=== PATIENT | female | born 1960 | race Caucasian/White ===

== ENCOUNTER 2019-07-31 13:05 | Emergency (ER) | payer OTHER, BC ==
--- NOTE | 2019-07-31 13:41 | EDM.PDOC ---
ED HPI GENERAL MEDICAL PROBLEM - General Chief Complaint: Head Injury Stated Complaint: FALL Time Seen by Provider: 07/31/19 13:24 Source of Information: Reports: Patient History Limitations: Reports: No Limitations - History of Present Illness INITIAL COMMENTS - FREE TEXT/NARRATIVE: Patient is a 59-year-old female who presents to the emergency department after having a fall while at work. She states that she was carrying some gardening equipment and tripped over her pant leg. She fell forward and did slightly catch herself with her hands. She has some superficial abrasions on her bilateral hands. She states that she hit her face on the cement floor when she fell forward. She denies a loss of consciousness. She has had no headache or dizziness since the time of the occurrence. She remembers all the events. She is not on blood thinners. She states she is feeling well, however her employer required her to get checked out. She does not plan to return to work today. Lip Pain Score (Numeric/FACES): 2 - Related Data Allergies Allergy/AdvReac Type Severity Reaction Status Date / Time Penicillins Allergy Severe Rash Verified 07/31/19 13:19 Home Meds: Home Meds Citalopram Hydrobromide [Celexa] 10 mg PO DAILY 07/31/19 [History] Omeprazole 20 mg PO DAILY 07/31/19 [History] lisinopriL [Lisinopril] 0 mg PO DAILY 07/31/19 [History] Past Medical History Cardiovascular History: Reports: Hypertension Gastrointestinal History: Reports: GERD - Past Surgical History HEENT Surgical History: Reports: Tonsillectomy Social & Family History - Tobacco Use Smoking Status *Q: Current Every Day Smoker Years of Tobacco use: 40 Packs/Tins Daily: 0.5 - Caffeine Use Caffeine Use: Reports: Soda - Recreational Drug Use Recreational Drug Use: No ED ROS GENERAL - Review of Systems Review Of Systems: See Below Constitutional: Reports: No Symptoms HEENT: Reports: No Symptoms Respiratory: Reports: No Symptoms Cardiovascular: Reports: No Symptoms Endocrine: Reports: No Symptoms GI/Abdominal: Reports: No Symptoms : Reports: No Symptoms Musculoskeletal: Reports: No Symptoms Skin: Reports: Other (Right upper lip swelling. Small area of redness/ tenderness directly above the right brow.) Neurological: Denies: Confusion, Dizziness, Headache, Paresthesia, Syncope, Trouble Speaking, Difficulty Walking, Weakness, Change in Speech Psychiatric: Reports: No Symptoms Hematologic/Lymphatic: Reports: No Symptoms Immunologic: Reports: No Symptoms ED EXAM, HEAD INJURY - Physical Exam Exam: See Below Exam Limited By: No Limitations General Appearance: Alert, WD/WN, No Apparent Distress Head: Normocephalic, Other (1 cm area of slight redness and minimal swelling directly above the right brow.). No: Scalp Swelling, Scalp Ecchymosis, Scalp Hematoma, Scalp Tenderness, Active Bleeding, Chávez's Sign, Facial Abrasions, Facial Lacerations, Facial Tenderness Nose: Normal Inspection, Normal Mucousa, No Blood. No: Nasal Swelling, Nasal Tenderness Throat/Mouth: Normal Inspection, Normal Lips, Normal Teeth, Normal Gums, Normal Oropharynx, Normal Voice, No Airway Compromise, Lip Swelling (Right upper lip. 0.5 cm abrasion present.) Respiratory: No Respiratory Distress, Lungs Clear, Normal Breath Sounds, No Accessory Muscle Use, Chest Non-Tender Cardiovascular: Normal Peripheral Pulses, Regular Rate, Rhythm, No Edema, No Gallop, No JVD, No Murmur, No Rub Extremities: Other (Superficial abrasions to bilateral palms. 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 There is no open areas or active bleeding. She does have swelling to her right upper lip with a superficial abrasion. Her neurologic exam is normal. She did not have a loss of consciousness. She denies any headache or dizziness. I do not feel CT scan of the head is warranted at this time. We will discharge her home with instructions to return if she should develop a significant headache, dizziness, vomiting, or any other neurologic changes. She is in agreement with this plan. Discharge instructions as documented. Departure - Departure Time of Disposition: 13:41 Disposition: Home, Self-Care 01 Condition: Good Clinical Impression: Contusion of lip, initial encounter Forehead contusion Qualifiers: Encounter type: initial encounter Qualified Code(s): S00.83XA - Contusion of other part of head, initial encounter - Discharge Information *PRESCRIPTION DRUG MONITORING PROGRAM REVIEWED*: No *COPY OF PRESCRIPTION DRUG MONITORING REPORT IN PATIENT KARLEE: No Instructions: Contusion, [id number] Forms: ED Department Discharge Additional Instructions: You were seen in the emergency department today for evaluation after a fall at work. On exam, you have a mild contusion above your right eyebrow, as well as a contusion of your right upper lip. You deny any headache, dizziness, or loss of consciousness. Your neurologic exam was normal. Recommend that you go home and rest. You may apply ice to your lip and forehead intermittently for the next day or 2 to help reduce the swelling. If you should develop any symptoms of neurologic dysfunction, such as headache, dizziness, vomiting, or any other symptoms of concern, please return to the emergency department. Sepsis Event Note - Evaluation Sepsis Screening Result: No Definite Risk - Focused Exam Vital Signs: Vital Signs Temp Pulse Resp BP Pulse Ox 07/31/19 13:24 98.4 F 89 20 123/80 95 Date Exam was Performed: 07/31/19 Time Exam was Performed: 19:17
== END 2019-07-31 13:50 | disposition home or self-care (01) ==
LOC: JD.ED 13:05
DX: S00.531A Contusion of lip, initial encounter (principal); S00.83XA Contusion of other part of head, initial encounter; S60.512A Abrasion of left hand, initial encounter; S60.511A Abrasion of right hand, initial encounter; I10 Essential (primary) hypertension; K21.9 Gastro-esophageal reflux disease without esophagitis; F17.210 Nicotine dependence, cigarettes, uncomplicated; Z79.899 Other long term (current) drug therapy; Z88.0 Allergy status to penicillin; W01.0XXA Fall on same level from slipping, tripping and stumbling without subsequent striking against object, initial encounter; Y99.0 Civilian activity done for income or pay
CPT/HCPCS: 99283

== ENCOUNTER 2020-04-16 16:18 | Emergency (ER) | payer BC, OTHER ==
--- NOTE | 2020-04-16 17:39 | EDM.PDOC ---
ED HPI GENERAL MEDICAL PROBLEM - General Chief Complaint: General Stated Complaint: ARM SWELLING/RED/POST 2ND COVID VACCINE Time Seen by Provider: 04/16/20 17:28 - History of Present Illness INITIAL COMMENTS - FREE TEXT/NARRATIVE: 59-year-old female presents the emergency room with left upper arm swelling and redness and discomfort at the injection site from her second Covid vaccine earlier today. Patient had her second Covid vaccine earlier today she is doing okay however at the injection site she has some discomfort and redness and a little bit of swelling that she did not experience with the first vaccine. Patient does not have any breathing difficulties no shortness of breath and denies any other symptoms. Generalized Pain Score (Numeric/FACES): 5 - Related Data Allergies Allergy/AdvReac Type Severity Reaction Status Date / Time Penicillins Allergy Severe Rash Verified 04/16/20 16:51 Home Meds: Home Meds Citalopram Hydrobromide [Celexa] 10 mg PO DAILY 07/31/19 [History] Omeprazole 20 mg PO DAILY 07/31/19 [History] lisinopriL [Lisinopril] 10 mg PO DAILY 07/31/19 [History] Past Medical History Cardiovascular History: Reports: Hypertension Gastrointestinal History: Reports: GERD - Infectious Disease History Infectious Disease History: Reports: Chicken Pox, Measles - Past Surgical History HEENT Surgical History: Reports: Tonsillectomy Social & Family History - Family History Family Medical History: No Pertinent Family History - Tobacco Use Tobacco Use Status *Q: Current Every Day Tobacco User Years of Tobacco use: 40 Packs/Tins Daily: 1 - Caffeine Use Caffeine Use: Reports: Soda - Recreational Drug Use Recreational Drug Use: No ED ROS GENERAL - Review of Systems Review Of Systems: See Below Constitutional: Reports: No Symptoms HEENT: Reports: No Symptoms Respiratory: Reports: No Symptoms Cardiovascular: Reports: No Symptoms GI/Abdominal: Reports: No Symptoms ED EXAM, GENERAL - Physical Exam Exam: See Below Exam Limited By: No Limitations General Appearance: Alert, No Apparent Distress Head: Atraumatic, Normocephalic Neck: Normal Inspection, Supple, Non-Tender, Full Range of Motion Respiratory/Chest: No Respiratory Distress, Lungs Clear, Normal Breath Sounds Cardiovascular: Regular Rate, Rhythm, No Edema, No Murmur Neurological: Alert, Oriented, Normal Cognition Skin Exam: Other (Upper arm in the deltoid region lateral aspect at the injection site she has mild swelling 5 to 6 cm round area of redness.) Course - Vital Signs Last Recorded V/S: Last Vital Signs Temp 36.8 C 04/16/20 16:47 Pulse 95 04/16/20 16:47 Resp 18 04/16/20 16:47 BP 136/80 04/16/20 16:47 Pulse Ox 98 04/16/20 16:47 - Re-Assessments/Exams Free Text/Narrative Re-Assessment/Exam: 04/16/20 17:51 I discussed with the patient that this is often seen after the Covid vaccine the patient was not aware of this. But she will watch her symptoms closely, and return as needed. Departure - Departure Time of Disposition: 17:52 Disposition: Home, Self-Care 01 Clinical Impression: Injection site reaction - Discharge Information Referrals: PCP,None [Primary Care Provider] - Additional Instructions: Return to the emergency room with any questions problems or worsening symptoms. As we discussed this probably represents a normal reaction to the Covid vaccine. However if this worsens and you think you need to be reevaluated do not hesitate to return to the emergency room. Use Tylenol 1000 mg every 6 hours. However do not exceed this dose. Sepsis Event Note (ED) - Evaluation Sepsis Screening Result: No Definite Risk - Focused Exam Vital Signs: Vital Signs Temp Pulse Resp BP Pulse Ox 04/16/20 16:47 36.8 C 95 18 136/80 98
== END 2020-04-16 17:57 | disposition home or self-care (01) ==
LOC: JD.ED 16:18
DX: T88.1XXA Other complications following immunization, not elsewhere classified, initial encounter (principal); I10 Essential (primary) hypertension; K21.9 Gastro-esophageal reflux disease without esophagitis; Z72.0 Tobacco use; Z79.899 Other long term (current) drug therapy; Z88.0 Allergy status to penicillin
CPT/HCPCS: 99282; 99283

== ENCOUNTER 2022-04-12 11:42 | Emergency (ER) | payer OTHER, BC | END 2022-04-12 13:38 | disposition home or self-care (01) | LOC: JD.ED 11:42 | DX: S51.812A Laceration without foreign body of left forearm, initial encounter (principal); Z20.5 Contact with and (suspected) exposure to viral hepatitis; K21.9 Gastro-esophageal reflux disease without esophagitis; F17.210 Nicotine dependence, cigarettes, uncomplicated; Z88.0 Allergy status to penicillin; Z88.1 Allergy status to other antibiotic agents; Z88.5 Allergy status to narcotic agent; Z79.899 Other long term (current) drug therapy; Y04.0XXA Assault by unarmed brawl or fight, initial encounter | CPT/HCPCS: 36415; 86317; 86803; 99283; G0433 ==

== ENCOUNTER 2024-04-16 10:48 | Day surgery (SDC) | payer BC ==
[~2024-04-16 10:48] MED LIST: Dexamethasone 4 MG/ML 5 ML MDV ONE; Lidocaine 1% 5 ML VIAL ONE; Midazolam 1 MG/ML 2 ML SDV ONE; Ondansetron 4 MG/2 ML SDV ONE; Propofol 200 MG/20 ML SDV ONE; Rocuronium 50 MG/5 ML Vial ONE; Sodium Chloride 0.9% 10 ML Syringe FLUSH PRN; Sodium Chloride 0.9% 10 ML Syringe FLUSH SCH; fentaNYL 250 MCG/5 ML SDV ONE
[2024-04-16] MEDS ORDERED: Succinylcholine 200 MG/10 ML MDV ONE (11:04)
[2024-04-16] MEDS ORDERED: Lidocaine 1% 30 ML SDV ONE (11:05)
[2024-04-16] MEDS: Lactated Ringers 1,000 ML IV SCH (11:20)
[2024-04-16] MEDS ORDERED: Bupivacaine 0.5% 30 ML SDV ONE (11:23)
[2024-04-16] MEDS ORDERED: ePHEDrine 50 MG/ML SDV ONE ×2 (11:25→13:25)
[2024-04-16] MEDS ORDERED: Phenylephrine 1% 10 MG/ML SDV ONE (11:42)
[2024-04-16] MEDS: Clindamycin Phosphate in D5W 900 MG in Premix Bag 1 BAG IV ONE (11:51)
[2024-04-16] MEDS: Gabapentin 300 MG Cap PO ONE (11:51)
[2024-04-16] MEDS: Acetaminophen 325 MG Tab PO ONE (11:52)
[2024-04-16] MEDS ORDERED: Ketorolac 30 MG/ML SDV ONE (11:54)
[2024-04-16 12:03] LABS: ALBUMIN 3.7 g/dl (3.4-5.0); ANION GAP 19.2 (5-15); BILIRUBIN TOTAL 0.4 mg/dL (0.2-1.0); BUN/CREATININE RATIO 11.2 (14-18); CALCIUM 9.7 mg/dL (8.5-10.1); CREATININE 1.7 mg/dL (0.55-1.02); EST CRCL DRUG DOSING (CG) 30.88 mL/min; POTASSIUM,K 4.2 mEq/L (3.5-5.1); PROTEIN TOTAL,TP 7.3 g/dl (6.4-8.2)
[2024-04-16] MEDS ORDERED: Glycopyrrolate 0.2 MG/ML 2 ML SDV ONE (12:29)
[2024-04-16] MEDS ORDERED: Neostigmine Methylsulfate 10 MG/10 ML MDV ONE (12:29)
[2024-04-16] MEDS: Lidocaine 1% 30 ML SDV ONE (13:03)
[2024-04-16] MEDS: EPINEPHrine 1 MG/ML SDV ONE (13:03)
[2024-04-16] MEDS: Bupivacaine 0.5% 30 ML SDV ONE (13:03)
[2024-04-16] MEDS ORDERED: Ondansetron 4 MG/2 ML SDV IVPUSH PRN (14:11)
[2024-04-16] MEDS ORDERED: HYDROmorphone 0.5 MG/0.5 ML Syringe IVPUSH PRN (14:11)
[2024-04-16] MEDS: fentaNYL 100 MCG/2 ML SDV IVPUSH PRN (14:15)
[2024-04-16] MEDS ORDERED: Acetaminophen/oxyCODONE 325-5 MG Tab PO PRN (14:41)
== END 2024-04-16 16:00 | disposition home or self-care (01) ==
LOC: JD.SDS 10:48
PROVIDERS: ATTEND Surgery
DX: K80.12 Calculus of gallbladder with acute and chronic cholecystitis without obstruction (principal); F41.1 Generalized anxiety disorder; J43.9 Emphysema, unspecified; I10 Essential (primary) hypertension; K21.9 Gastro-esophageal reflux disease without esophagitis; F17.210 Nicotine dependence, cigarettes, uncomplicated; Z79.899 Other long term (current) drug therapy; Z88.0 Allergy status to penicillin; Z88.5 Allergy status to narcotic agent; Z88.8 Allergy status to other drugs, medicaments and biological substances
CPT/HCPCS: 36415; 47562; 80053; A9270; J0171; J0665; J0736; J1100; J1885; J2250; J2371; J2405; J2704; J2710; J3010; J3490; J7120; 00790; J0330